=== PATIENT | male | born 1960 | race Caucasian/White ===

== ENCOUNTER → 2019-04-15 | Outpatient (CLI) | payer OTHER, BC ==
[~2019-04-15] MED LIST: ATOR20TA58 PO; FEBU40TA PO; LACT1CAP29 PO; LISI1TAB19 PO
[2019-04-15 09:24] LABS: BASO % 1 % (0-3); EOS # 0.1 x10^3/uL (0.0-0.7); EOS % 2 % (0-3); HEMATOCRIT 41.3 % (39.0-53.0); HEMOGLOBIN 14.1 g/dL (13.0-17.5); LYMPH # 1.2 x10^3/uL (1.0-4.8); LYMPH % 23 % (24-48); MEAN CORPUSCULAR HEMOGLOBIN 31 pg (25-35); MEAN CORPUSCULAR HGB CONC 34 g/dL (31-37); MEAN CORPUSCULAR VOLUME 90 fL (79-100); MONO # 0.5 x10^3/uL (0.0-1.1); MONO % 9 % (0-9); NEUT # 3.4 x10^3/uL (1.8-7.7); NEUT % 66 % (31-73); PLATELET COUNT 190 x10^3/uL (140-400); RED BLOOD COUNT 4.57 x10^6/uL (4.30-5.70); RED CELL DISTRIBUTION WIDTH 13.1 % (11.5-14.5); WHITE BLOOD COUNT 5.2 x10^3/uL (4.0-11.0)
[2019-04-15 09:33] LABS: PROTHROMBIN TIME PATIENT 12.2 SEC (11.7-14.0)
[2019-04-15 09:38] LABS: ALBUMIN 3.8 g/dL (3.4-5.0); CALCIUM 9.4 mg/dL (8.5-10.1); CREATININE 1.5 mg/dL (0.7-1.3); GFR 48.2
--- NOTE | 2019-04-15 13:20 | EKG ---
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
--- NOTE | 2019-04-15 14:42 | RAD ---
CHEST PA LATERAL History: Hypertension Comparison: None. Findings: Frontal and lateral views of the chest were obtained. The cardiomediastinal silhouette is normal. Pulmonary vasculature is normal. The lungs are clear . Right medial upper lung field opacities present probably related to vasculature. This is seen on the frontal view.. No pleural effusion or pneumothorax is seen. There is no acute bone abnormality. IMPRESSION: No acute cardiopulmonary process. Electronically signed by: José Antonio Mayer MD (04/15/2019 2:39 PM) [facility]
[2019-04-16 00:07] LABS: HEMOGLOBIN A1C 5.2 % (4.8-5.6)
== END | disposition home or self-care (01) ==
LOC: SURGPAT 13:20
PROVIDERS: ATTEND Orthopaedic Surgery
DX: Z01.818 Encounter for other preprocedural examination (principal); M17.11 Unilateral primary osteoarthritis, right knee; I10 Essential (primary) hypertension
CPT/HCPCS: 36415; 71046; 80048; 82040; 82306; 83036; 85025; 85610; 85651; 85730; 87641; 93005

== ENCOUNTER → 2019-09-19 | Outpatient (CLI) | payer OTHER, BC ==
[~2019-09-19] MED LIST changes: +ASPI325T11 PO; +LISI-334 PO; -LISI1TAB19 PO; +LISI1TAB37 PO; +TAMS0.4C97 PO; +VITA25006 PO
[2019-09-19 13:24] LABS: ALBUMIN 3.5 g/dL (3.4-5.0); C-REACTIVE PROTEIN 2.1 mg/L (0-3.3); CREATININE 1.3 mg/dL (0.7-1.3); GFR 56.9; POTASSIUM 4.1 mmol/L (3.5-5.1)
[2019-09-19 13:32] LABS: PROTHROMBIN TIME PATIENT 12.1 SEC (11.7-14.0)
[2019-09-20 01:10] LABS: HEMOGLOBIN A1C 5.2 % (4.8-5.6)
== END | disposition home or self-care (01) ==
LOC: SURGPAT 12:30
PROVIDERS: ATTEND Orthopaedic Surgery
DX: Z01.818 Encounter for other preprocedural examination (principal); Z11.59 Encounter for screening for other viral diseases; M17.11 Unilateral primary osteoarthritis, right knee; Z96.651 Presence of right artificial knee joint
CPT/HCPCS: 80048; 82040; 82306; 83036; 85610; 85730; 86140; 87641; U0003

== ENCOUNTER 2019-09-24 06:05 | Inpatient (IN) | payer OTHER, BC ==
--- NOTE | 2019-09-23 14:52 | PDOC1 ---
History and Physical Date of Admission Date of Admission 09/24/2019 Identification/Chief Complaint Chief Complaint Right knee pain, right knee osteoarthritis Source Source: Chart review History of Present Illness History of Present Illness 59-year-old man with longstanding right knee pain, and previously had meniscectomy with Dr. Nichole. He tried cortisone injections, and has attempted to lose weight. Cortisone only gave him temporary relief.. 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 While working he was having difficulty and could "hardly walk back to my car". Currently, he states that his right knee is the bad knee although his left knee is bothering him now due to increased weight bearing. He has been unable to exercises as his knee bothers him at the end of the day and makes it difficult for him to even walk to the car. As a result, he has gained weight since his last visit. Denies blood thinners, smoking, or metal/nickel allergy. He is here for elective total knee replacement surgery. Past Medical History Cardiovascular: HTN, Hyperlipidemia Past Surgical History Past Surgical History: Hernia Repair Family History Family History: No Significant Social History Smoke: No (except occasional cigar smoking) ALCOHOL: occassional Current Problem List Problem List Osteoarthritis right knee Current Medications Current Medications Active Scripts Active Reported Noxifol-D3 2,500 Unit-1 mg Tab (Vitamin D3/Folic Acid) 2,500 Unit Tablet 10,000 Unit PO DAILY Uloric (Febuxostat) 40 Mg Tablet 1 Tab PO DAILY 30 Days Atorvastatin Calcium 20 Mg Tablet 1 Tab PO DAILY Lisinopril 20 Mg Tablet 1 Tab PO DAILY Flomax (Tamsulosin Hcl) 0.4 Mg Cap.er.24h 1 Cap PO DAILY Allergies Allergies: Coded Allergies: No Known Drug Allergies (Unverified , 09/19/19) ROS Review of System CONSTITUTIONAL: Fever denies. Chills denies. Weight gain denies. Weakness none. weight loss denies. Fatigue none. OPHTHALMOLOGY: Blurred vision none. Double vision denies. Change in vision none. ENT: Hearing loss none. Change in voice denies. Rhinorrhea none. CARDIOLOGY: Palpitations none. Shortness of breath denies. Chest pain none. GASTROENTEROLOGY: Diarrhea denies. Vomiting none. Dysphagia none. UROLOGY: Voiding normally yes. Hematuria none. MUSCULOSKELETAL: Chronic back or neck pain denies. Swelling of the feet, hands, ankles and /or legs denies. Joint pain Right Knee. DERMATOLOGY: Rash denies. Lumps none. NEUROLOGY: Dizziness/lightheadedness denies. Double vision, temporary blindness denies. Tingling/numbness none. PSYCHOLOGY: Change in mood or personality denies. Memory loss none. ENDOCRINOLOGY: Obesity denies. Fatigue none. Weight loss none. HEMATOLOGY/LYMPH: Hepatitis denies. Enlarged lymph nodes denies. Physical Exam General: Alert, Cooperative HEENT: Atraumatic Lungs: Normal air movement Heart: RRR Abdomen: Soft Extremities: Other (The RIGHT knee shows an antalgic gait. There is varus alignment. No masses. There is a small effusion although not as much fluid or tenderness as at the last visit. Tenderness on the joint lines. Range of motion is 5-115 degrees. There is crepitus with range of motion, and pain at the extremes of motion. The knee is stable to varus and valgus stress without subluxation or laxity. Muscle strength is slightly weak for the quadriceps 4+/5 which may be due to pain or avoidance, and does not seem neurogenic, and the muscle tone and bulk is slightly decreased. The hamstring strength is 5/5. The skin is normal with no scars, rashes, lesions or ulcers. Light touch sensation is intact. No edema and no varicosities. Dorsalis pedis pulse is intact and capillary refill is normal. ) Neuro: Normal speech, Normal tone, Sensation intact Vitals Vitals Vital Signs Date Time Temp Pulse Resp B/P (MAP) Pulse Ox O2 Delivery O2 Flow Rate FiO2 09/19/19 13:11 98.0 77 20 94 98.0 Images Images PATIENT: BELEM REYNOSO ACCOUNT: [id number] : 1960 LOCATION: [facility] AGE: 58 SEX: M EXAM STATUS: REG CLI ORD. PHYSICIAN: LEO GARCIA MD REASON: PROCEDURE: KNEE BILAT 2V EXAM: 1. KNEE STANDING BILAT AP, 2. KNEE BILAT 2V. HISTORY: Bilateral knee pain. COMPARISON: None. FINDINGS: On the right, the medial compartmental joint space is effaced. There are moderate osteophytes along all 3 compartments. There is there is angulation and mild lateral subluxation of the tibia. A joint effusion is moderate. A small metallic foreign body projects within the anteromedial soft tissues of the distal thigh and measures approximately 5 mm. On the left, there are tiny osteophytes along the patella with preservation of joint spaces. Alignment is maintained. There is no joint effusion. No fractures are identified. IMPRESSION: 1. Severe medial compartment predominant osteoarthritis of the right knee with varus angulation. 2. Minimal patellofemoral compartmental osteoarthritis on the left. Electronically signed by: Dawn Holley MD (03/08/2019 8:41 AM) [facility] DICTATED and SIGNED BY: ELKIN HOLLEY MD DATE: 03/08/1941 VTE Prophylaxis Ordered VTE Prophylaxis Devices: Yes VTE Pharmacological Prophylaxi: Yes Assessment/Plan Assessment/Plan He has [id number] osteoarthritis of the right knee. He has tried nonoperative treatment without prolonged success. He has tried weight loss but difficult to do especially since both knees have started to hurt now. We discussed the risks benefits and alternatives of total knee arthroplasty. I recommended total knee replacement using robotic instrumentation. We discussed the potential risks of infection, neurovascular injury, bleeding, blood clots, need for revision surgery, or other potential surgical or anesthetic complications. All of his questions about surgery were answered and he is here today for elective right total knee arthroplasty with robotic assistance. Justicifation of Admission Dx: Justifications for Admission: Justification of Admission Dx: N/A LEO GARCIA MD Sep 23, 2019 14:52
[2019-09-24] VITALS (8 sets, daily range): BP systolic 106–158; BP diastolic 56–80
[~2019-09-24] VITALS: Ht 175.3 cm; Wt 146.0 kg
[~2019-09-24 06:05] MED LIST changes: +ACETAMINOPHEN 500 MG TABLET PO PRN; -ASPI325T11 PO; +CELECOXIB 100 MG CAPSULE. PO ONE; +MORPHINE SULFATE 5 MG, KETOROLAC 30MG VIAL 30 MG, ROPIVacaine 0.5% PF 60 ML, EPINEPHrin... INT ART ONE; +TRANEXAMIC ACID 1,000 MG in IV NS 50ML -- 1ST BAG INJ ONE; +ceFAZolin SODIUM 3 GM in IV D5W 100 ML IV PRN
[2019-09-24] MEDS ORDERED: TOBRAMYCIN POWDER 1.2 GM VIAL. ONE (06:48)
[2019-09-24] MEDS ORDERED: VANCOMYCIN 1 GM VIAL. ONE ×2 (06:48→06:49)
[2019-09-24] MEDS ORDERED: PROPOFOL 10 MG/ML (20ML) VIAL. IV ONE ×2 (06:52→07:46)
[2019-09-24] MEDS ORDERED: SEVOFLURANE > 120 MINUTES. IH ONE (06:52)
[2019-09-24] MEDS ORDERED: DEXAMETHASONE SOD PHOS 4 MG/ML VIAL ONE (06:52)
[2019-09-24] MEDS ORDERED: ONDANSETRON PF 4 MG/2 ML VIAL. ONE (06:52)
[2019-09-24] MEDS ORDERED: LIDOCAINE 2% PF 5 ML VIAL. ONE (06:52)
[2019-09-24] MEDS ORDERED: fentaNYL PF VIAL 100 MCG/2 ML VIAL ONE (06:54)
[2019-09-24] MEDS ORDERED: ROCURONIUM 100 MG/10 ML VIAL. ONE (06:54)
[2019-09-24] MEDS ORDERED: MIDAZOLAM HCL/PF 2 MG/2 ML VIAL. ONE (06:54)
[2019-09-24] MEDS ORDERED: fentaNYL PF VIAL 100 MCG/2 ML VIAL IV PRN ×2 (07:00)
[2019-09-24] MEDS ORDERED: LIDOCAINE 1% PF 2 ML VIAL. ID PRN (07:00)
[2019-09-24] MEDS ORDERED: ONDANSETRON PF 4 MG/2 ML VIAL. IV PRN (07:00)
[2019-09-24 07:01] LABS: BASO % 0 % (0-3); EOS # 0.2 x10^3/uL (0.0-0.7); EOS % 4 % (0-3); HEMATOCRIT 42.1 % (39.0-53.0); HEMOGLOBIN 14.3 g/dL (13.0-17.5); LYMPH # 1.5 x10^3/uL (1.0-4.8); LYMPH % 30 % (24-48); MEAN CORPUSCULAR HEMOGLOBIN 31 pg (25-35); MEAN CORPUSCULAR HGB CONC 34 g/dL (31-37); MEAN CORPUSCULAR VOLUME 92 fL (79-100); MONO # 0.5 x10^3/uL (0.0-1.1); MONO % 9 % (0-9); NEUT # 2.9 x10^3/uL (1.8-7.7); NEUT % 56 % (31-73); PLATELET COUNT 172 x10^3/uL (140-400); RED BLOOD COUNT 4.57 x10^6/uL (4.30-5.70); RED CELL DISTRIBUTION WIDTH 13.2 % (11.5-14.5); WHITE BLOOD COUNT 5.1 x10^3/uL (4.0-11.0)
[2019-09-24] MEDS: IV RINGERS,LACTATED 1000ML 1,000 ML IV SCH ×2 (07:07→10:25)
[2019-09-24] MEDS ORDERED: PHENYLEPHRINE in 0.9% NACL PF 1 MG/10 ML SYRINGE. IV ONE (07:46)
[2019-09-24] MEDS ORDERED: ePHEDrine PF IN SALINE 50 MG/10 ML SYRINGE. IV ONE (07:46)
[2019-09-24] MEDS ORDERED: TRANEXAMIC ACID 1,000 MG in IV NS 50ML -- 2ND BAG INJ ONE (08:00)
[2019-09-24] MEDS ORDERED: NEOSTIGMINE METHYLSULFATE 5 MG/5 ML SYRINGE. ONE (08:12)
[2019-09-24] MEDS ORDERED: GLYCOPYRROLATE 1 MG/5 ML VIAL. ONE (08:12)
[2019-09-24] MEDS ORDERED: HYDROmorphone 2 MG/ML VIAL ONE (08:55)
--- NOTE | 2019-09-24 09:47 | PDOC4 ---
Operative Note Operative Note Date of Procedure: September 24, 2019 Pre-Op Diagnosis: Unilateral primary osteoarthritis, right knee. M17.11 Post-Op Diagnosis: same Procedure: right total knee arthroplasty with patella resurfacing, robotic assisted, CPT 49342 Surgeon: Leo Fuentes MD Stereotyper: YURI Beard Anesthesia: General EBL: 150 mL Specimens Obtained: right knee bone and soft tissue Complications: none Drains: Hemovac plus pain catheter Tourniquet time: 82 Minutes Tourniquet Pressure: 350 mm Hg Indications for Procedure: Knee arthritis pain, affecting quality of life, unrelieved by nonoperative management Findings: Severe osteoarthritis with bone on bone contact medially with full thickness cartilage loss in the patellofemoral and lateral compartments Implants: Charles & Nephew Journey II Total Knee System, Size 6 right bicruciate stabilized Journey II BCS Oxinium femoral component, size 6 right Journey nonporous tibial baseplate, size 5-6 15 mm right Journey II BCS constrained articular insert, 35 mm oval Nelly II resurfacing patellar component Procedure in Detail: The patient was identified in the preoperative holding area, and the correct right lower extremity was marked by me. The patient was taken to the operating room where the patient was anesthetized by the Department of Anesthesia. Preoperative antibiotics were given intravenously. Tranexamic acid 1 g was given intravenously for intraoperative hemostasis. A "time-out" procedure was perform ed. The patient was positioned supine on the operative table with a tourniquet on the upper right thigh. A right hip bump and heel bump were attached to the operating table for later intraoperative positioning. The right lower limb was thoroughly scrubbed, then sterile Chloraprep solution was applied, and the limb was draped in sterile fashion. The operating team wore exhaust ventilated hoods with Smart Eye Personal Protection Toga Zippered Peel-Away protection system. An impervious stockinet and an adhesive drape were used such that the skin was entirely covered. The limb was exsanguinated with an Esmarch bandage, and the t ourniquet was inflated. A midline skin incision was made with a scalpel using the patella and tibial tubercle as landmarks. Electrocautery was used for hemostasis. My intellectual property legal assistant used rake retractors and a laparotomy sponge. A medial parapatellar arthrotomy incision was used with extension into the distal quadriceps tendon. The patella was retracted laterally and Hohmann retractors were now used by my intellectual property legal assistant. Excess synovium, the menisci, and the cruciate ligaments were resected sharply. A periarticular multimodal ropivacaine anesthetic injection was used in the suprapatellar pouch and distal quadriceps muscle. The patella was everted and exposed. The patella thickness was measured with a caliper, and then cut freehand with a saw, using caliper measurements to assess the resection. The lateral retinaculum was partially released from the lateral patella using electrocautery. Rongeurs were used to make sure there were no remaining exposed patellar osteophytes medially or laterally. The patella was sized, and then drilled for an oval three-peg patella component. The tibial tracker array for the NAVIO system was applied to the tibial crest four finger breadths below the tibial tubercle, using percutaneous incisions and bicortical pins. The femoral tracker array was applied outside of the original incision using two separate stab incisions using bicortical pins. Checkpoint verification pins were applied to the femur and tibia. Using the point probe, the medial and lateral malleoli were localized and the locations were stored. The center of the tibia was noted at the anterior cruciate ligament insertion and stored. The center of the femur was marked at the intersection of Whitesidess line with the transepicondylar axis. The hip center calculation was performed with range of motion of the hip. The femur neutral position was identified, and simulated weightbearing was performed with axial compression on the foot. Range of motion without stress was performed and the data collected. Range of motion with valgus stress, and range of motion with varus stress data collection was also performed. Rotational references include the Whitesidess line, and the trans-epicondylar axis. The femoral articular surface was now mapped in 3 dimensions using the point probe and digital data collected. The tibial condyle articular surfaces and cortical edges were mapped in 3 dimensions using the point probe including the medial and lateral tibial plateau. Implant planning was now performed on-screen with manipulation of the implant sizes, cut thicknesses and gaps, component rotation, component flexion/extension and component varus/valgus until satisfactory ligament balance, alignment and stability of the knee was expected throughout the range of motion. My intellectual property legal assistant held a Hohmann retractor, a medial Z-retractor, and an Army-Pollock retractor to protect the medial and lateral collateral ligaments, the patellar tendon, the skin and the other soft tissues. The point probe was used to confirm the location of the checkpoint verification pins. The distal femoral surface was now prepared using the Anspach sabrina with footpedal, and the NAVIO handpiece for bone removal to the previously planned distal femoral resection. The crosshairs at the pin locations were marked by using a mallet and the point probe for definitive location. A 5-in-1 Journey II cutting guide was then applied and the position was checked with the virtual amy wing from the NAVIO to ensure proper placement as the pins were applied. The posterior, anterior, and all chamfer cuts were made with the oscillating saw. Excess bone was removed with an osteotome and rongeurs. The tibial cutting guide was applied, positioned using the NAVIO virtual amy wing, and secured to the upper tibia using three pins at the previously planned location. The virtual amy wing was used to confirm the resection depth, slope and coronal alignment. The upper tibia was cut made with an oscillating saw. My intellectual property legal assistant held Hohmann retractors and a posterior cruciate ligament retractor to protect the medial and lateral collateral ligaments, the patellar tendon, the skin, the peroneal nerve and the other soft tissues. The upper tibia was sized with a trial baseplate. The posterior compartment was cleared of osteophytes and loose bodies. The periarticular anesthetic injection was used in the posterior compartment. The box cut for a posterior stabilized component was made. A preliminary reduction was performed with a trial femur, trial tibial baseplate and trial polyethylene. The NAVIO system was used to confirm range of motion, and postoperative stressed gap assessment. A medial release was required, using a 10 blade scalpel, and a Victoria elevator to elevate the medial structures from the upper medial tibia. Excessive medial tibial and femoral osteophytes were resected to improve the medial to lateral gap balance. The stability was assessed using different thicknesses of tibial articular surface to find satisfactory stability and good range of motion. The rotation of the tibial component was marked on the upper tibia. Final trial reduction was now performed verifying patella tracking and tibiofemoral stability and alignment. The bone pins and tracker arrays were removed, and the checkpoint verification pins were removed. The tibia preparation was completed with a drill, saw, and fin punch at the previously noted rotation. The final implants were verified and opened. Outer gloves were changed by the operating team. Betadine lavage was used. The bone cuts were irrigated with saline using the Brendan InterPulse device and then dried with suction and laparotomy sponges. Two packages of Charles + Nephew Rally HV bone cement were mixed in powdered form with Vancomycin 1gm and Tobramycin 1.2 gm, and then vacuum-mixed with the monomer, and placed into a cement gun. The cut surfaces of the bone were thoroughly dried with suction and with laparotomy sponges for cement interdigitation. The final components were cemented into place. The knee was kept at full extension while the cement hardened, and excess cement was removed. Tranexamic acid 1 g was redosed intravenously for additional intraoperative hemostasis. The tourniquet was released, and electrocautery was used for hemostasis. A final periarticular anesthetic injection was used for pain relief. The bone pin sites on the tibial crest were closed with #3-0 Nylon sutures. A final check of [id number] and stability was made, and the polyethylene implant final size was chosen. The polyethylene implant was secured to the tibial baseplate, and the knee was reduced a final time and range of motion and stability was confirmed. Thorough saline irrigation was used with the [place] InterPulse assistant professor of surgery. A pain catheter, and a 15 Fr Hemovac were inserted. Topical Vancomycin 1 gm was used during the closure. The arthrotomy was closed with interrupted iozmos-pz-[id number] #1 Vicryl suture. The arthrotomy incision was then run with #1 STRATAFIX Symmetric PDS Plus Knotless suture. The subcutaneous tissues were approximated initially with #2-0 Vicryl inverted interrupted sutures by my intellectual property legal assistant. Next the subcuticular layer was approximated in a running fashion with #3-0 STRATAFIX suture by my intellectual property legal assistant. The skin incision was then covered and reinforced by my intellectual property legal assistant with Acticoat, followed by a MONI single use negative pressure wound therapy dressing Soft roll and an Gadiel wrap were applied. Needle and sponge counts were correct. There were no apparent complications. The patient returned to the recovery room in stable condition. LEO FUENTES MD Sep 24, 2019 09:47
[2019-09-24] MEDS ORDERED: IV NORMAL SALINE 1000ML BAG 1,000 ML IV SCH (09:51)
[2019-09-24] MEDS ORDERED: METOCLOPRAMIDE HCL 10 MG/2 ML VIAL. IVP PRN (10:00)
[2019-09-24] MEDS ORDERED: fentaNYL PF VIAL 100 MCG/2 ML VIAL IVP PRN ×2 (10:00)
[2019-09-24] MEDS ORDERED: 0.9 % SODIUM CHLORIDE 10 ML DISP.SYRIN. IV PRN (10:00)
[2019-09-24] MEDS ORDERED: MORPHINE SULFATE 2 MG/ML VIAL. IVP PRN (10:00)
[2019-09-24] MEDS ORDERED: diphenhydrAMINE 50 MG/ML VIAL IVP PRN (10:00)
[2019-09-24] MEDS ORDERED: CALCIUM CARBONATE 500 MG TAB.CHEW PO PRN (10:00)
[2019-09-24] MEDS ORDERED: DEXTROSE 50% 25 GM / 50ML DISP.SYRIN. IV PRN (10:00)
[2019-09-24] MEDS ORDERED: PROCHLORPERAZINE 5 MG TABLET. PO PRN (10:00)
--- NOTE | 2019-09-24 10:35 | RAD ---
EXAM: Right knee, 2 views HISTORY: Right knee arthroplasty. COMPARISON: 03/07/2019. FINDINGS: There are changes of tricompartmental arthroplasty in near-anatomic alignment. No fractures are identified. Soft tissue gas and a drain are noted. A 4 mm metallic foreign body projects within the medial soft tissues of the right distal thigh. IMPRESSION: 1. Right total knee arthroplasty in expected alignment. Electronically signed by: Dawn Holley MD (09/24/2019 10:32 AM) [id number]
[2019-09-24] MEDS: MORPHINE SULFATE 2 MG/ML VIAL. IV PRN ×2 (10:46→11:18)
[2019-09-24] MEDS ORDERED: PROCHLORPERAZINE 10 MG/2 ML VIAL. ONE (11:07)
[2019-09-24] MEDS ORDERED: oxyCODONE/APAP 5/325 1 TAB TABLET PO PRN (11:15)
[2019-09-24] MEDS: PROCHLORPERAZINE 10 MG/2 ML VIAL. IV PRN ×2 (11:18→11:57)
[2019-09-24] MEDS: HYDROmorphone 2 MG/ML VIAL IV PRN ×4 (11:19→12:22)
[2019-09-24] MEDS: ONDANSETRON PF 4 MG/2 ML VIAL. IVP SCH ×2 (12:00→17:37)
--- NOTE | 2019-09-24 12:48 | NUR ---
received from pacu. he is drowsy and rating his pain "7". answers questions appropriately. he has good motion, sensation and pulses bilateral lower extremities. he is peripheral neuropathy in toes but has good sensation in foot ankle and legs dressing is dry and intact. Hemovac and iac present
[2019-09-24] MEDS ORDERED: TAMSULOSIN 0.4 MG CAP.ER.24H. PO SCH (13:00)
[2019-09-24] MEDS: LISINOPRIL 20 MG TABLET PO SCH (13:56)
[2019-09-24] MEDS: SENNOSIDES/DOCUSATE 8.6/50MG TABLET. PO SCH (13:56)
[2019-09-24] MEDS: ceFAZolin SODIUM 3 GM in IV DEXTROSE 5% 100ML 100 ML IV SCH ×2 (13:58→19:52)
--- NOTE | 2019-09-24 14:46 | PDOC ---
Provider Note Provider Note Report reviewed, images independently reviewed. Satisfactory total knee arthroplasty, without apparent complications. [facility] [address] [place] [address] IMAGING REPORT Signed PATIENT: BELEM REYNOSO ACCOUNT: [id number] : 1960 LOCATION: SURG AGE: 59 SEX: M EXAM STATUS: REG [facility] ORD. PHYSICIAN: LEO GARCIA MD REASON: POST OP PROCEDURE: KNEE RIGHT 2V EXAM: Right knee, 2 views HISTORY: Right knee arthroplasty. COMPARISON: 03/07/2019. FINDINGS: There are changes of tricompartmental arthroplasty in near-anatomic alignment. No fractures are identified. Soft tissue gas and a drain are noted. A 4 mm metallic foreign body projects within the medial soft tissues of the right distal thigh. IMPRESSION: 1. Right total knee arthroplasty in expected alignment. Electronically signed by: Dawn Holley MD (09/24/2019 10:32 AM) [id number] DICTATED and SIGNED BY: ELKIN HOLLEY MD DATE: 09/24/19 1032 Justicifation of Admission Dx: Justifications for Admission: Justification of Admission Dx: N/A LEO GARCIA MD Sep 24, 2019 14:46
[2019-09-24] MEDS: oxyCODONE/APAP 5/325 1 TAB TABLET PO PRN ×2 (16:14→20:47)
[2019-09-24] MEDS: ONDANSETRON ODT 4 MG TAB.RAPDIS. PO SCH (17:37)
--- NOTE | 2019-09-24 17:45 | NUR ---
Zofran held no nausea or vomiting noted
[2019-09-24] MEDS: KETOROLAC 30MG VIAL 30 MG, BUPIVACAINE MPF 0.25% 20 ML, EPINEPHrine 0.5 MG in TOTAL VOL... INT ART SCH (18:22)
[2019-09-24] MEDS: ASPIRIN ENTERIC COATED 325 MG TABLET.DR. PO SCH (20:46)
[2019-09-24] MEDS: TAMSULOSIN 0.4 MG CAP.ER.24H. PO SCH (20:46)
[2019-09-24] MEDS: ZOLPIDEM 5 MG TABLET. PO PRN (21:58)
[2019-09-25] MEDS: MORPHINE SULFATE 4 MG/ML VIAL. IVP PRN ×4 (01:10→20:05)
[2019-09-25] MEDS: ceFAZolin SODIUM 3 GM in IV DEXTROSE 5% 100ML 100 ML IV SCH (01:15)
[2019-09-25 03:10] VITALS: BP 118/56
[2019-09-25] MEDS: KETOROLAC 30MG VIAL 30 MG, BUPIVACAINE MPF 0.25% 20 ML, EPINEPHrine 0.5 MG in TOTAL VOL... INT ART SCH ×2 (05:43→05:57)
[2019-09-25] MEDS: ONDANSETRON PF 4 MG/2 ML VIAL. IVP SCH ×2 (06:00)
[2019-09-25] MEDS: ONDANSETRON ODT 4 MG TAB.RAPDIS. PO SCH ×3 (06:00→12:00)
[2019-09-25] MEDS ORDERED: MAGNESIUM HYDROXIDE 2,400 MG/30 ML ORAL.SUSP. PO PRN (06:00)
--- NOTE | 2019-09-25 06:00 | NUR ---
IAC not infuse catheter tubing got disconnected when pt changing his shorts earlier during the shift hemovac drain accidentally came out reenforce dressing
[2019-09-25 07:15] VITALS: BP 122/74
[2019-09-25 07:23] LABS: PROTHROMBIN TIME PATIENT 13.3 SEC (11.7-14.0)
[2019-09-25 07:40] LABS: HEMATOCRIT 36.5 % (39.0-53.0); HEMOGLOBIN 12.5 g/dL (13.0-17.5)
[2019-09-25] MEDS: FEBUXOSTAT 40 MG TABLET PO SCH (08:46)
[2019-09-25] MEDS: MULTIVITAMIN with MINERAL TABLET. PO SCH (08:46)
[2019-09-25] MEDS: ASPIRIN ENTERIC COATED 325 MG TABLET.DR. PO SCH ×2 (08:46→20:04)
[2019-09-25] MEDS: SENNOSIDES/DOCUSATE 8.6/50MG TABLET. PO SCH (08:46)
--- NOTE | 2019-09-25 08:48 | PDOC ---
ORTHO PROGRESS NOTES DATE: 09/25/19 TIME: 08:36 Subjective Patient states is painful today more so than yesterday. Post-op Day: 1 Procedure Right total knee arthroplasty with patellar resurfacing robot assisted Vitals Vital Signs Date Time Temp Pulse Resp B/P (MAP) Pulse Ox O2 Delivery O2 Flow Rate FiO2 09/25/19 07:43 Room Air 09/25/19 07:15 97.8 91 20 122/74 (90) 96 97.8 09/24/19 15:09 2.0 Labs Laboratory Tests Test 09/24/19 06:40 09/25/19 03:50 White Blood Count 5.1 x10^3/uL (4.0-11.0) Red Blood Count 4.57 x10^6/uL (4.30-5.70) Hemoglobin 14.3 g/dL (13.0-17.5) 12.5 g/dL (13.0-17.5) Hematocrit 42.1 % (39.0-53.0) 36.5 % (39.0-53.0) Mean Corpuscular Volume 92 fL (79-100) Mean Corpuscular Hemoglobin 31 pg (25-35) Mean Corpuscular Hemoglobin Concent 34 g/dL (31-37) 34 g/dL (31-37) Red Cell Distribution Width 13.2 % (11.5-14.5) Platelet Count 172 x10^3/uL (140-400) Neutrophils (%) (Auto) 56 % (31-73) Lymphocytes (%) (Auto) 30 % (24-48) Monocytes (%) (Auto) 9 % (0-9) Eosinophils (%) (Auto) 4 % (0-3) Basophils (%) (Auto) 0 % (0-3) Neutrophils # (Auto) 2.9 x10^3/uL (1.8-7.7) Lymphocytes # (Auto) 1.5 x10^3/uL (1.0-4.8) Monocytes # (Auto) 0.5 x10^3/uL (0.0-1.1) Eosinophils # (Auto) 0.2 x10^3/uL (0.0-0.7) Basophils # (Auto) 0.0 x10^3/uL (0.0-0.2) Prothrombin Time 13.3 SEC (11.7-14.0) Prothromb Time International Ratio 1.1 (0.8-1.1) Laboratory Tests Test 09/25/19 03:50 Hemoglobin 12.5 g/dL (13.0-17.5) Hematocrit 36.5 % (39.0-53.0) Mean Corpuscular Hemoglobin Concent 34 g/dL (31-37) Prothrombin Time 13.3 SEC (11.7-14.0) Prothromb Time International Ratio 1.1 (0.8-1.1) Notes Awake and alert sitting up in chair at bedside. Assessment and Plan Postop day 1 status post right total knee arthroplasty with patellar resurfacing robotic assisted Motor and sensation intact distally. Calf is soft and nontender. Dressing is dry and intact. The IAC was not functional last evening per report. Also the drain was pulled early. Patient has complaint of pain and less mobility at this time. Continue PT. Pain control MAYANK CONWAY APRN Sep 25, 2019 08:48
[2019-09-25] MEDS: LISINOPRIL 20 MG TABLET PO SCH (08:52)
--- NOTE | 2019-09-25 10:35 | NUR ---
Going to therapy but still rating pain at 8. Morphine IV given. Cont. monitor.
[2019-09-25] MEDS ORDERED: ONDANSETRON PF 4 MG/2 ML VIAL. IVP PRN (12:00)
[2019-09-25] MEDS ORDERED: ONDANSETRON ODT 4 MG TAB.RAPDIS. PO PRN (12:00)
[2019-09-25] MEDS: CELECOXIB 100 MG CAPSULE. PO SCH ×2 (13:29→20:04)
[2019-09-25] MEDS: oxyCODONE/APAP 7.5/325 1 TAB TABLET PO PRN ×2 (13:30→17:15)
[2019-09-25] MEDS ORDERED: oxyCODONE/APAP 7.5/325 1 TAB TABLET PO PRN (13:30)
--- NOTE | 2019-09-25 14:30 | NUR ---
Pt c/o knee throbbing.Got orders to increase Percocet to 7.5mg.
[2019-09-25] MEDS ORDERED: BISACODYL 10 MG SUPP.RECT. PR PRN (16:00)
--- NOTE | 2019-09-25 16:30 | NUR ---
Pt requesting pain medication not time for po pain med. Morphine IV given instead.
[2019-09-25 19:00] VITALS: BP 129/51
--- NOTE | 2019-09-25 19:24 | PDOC ---
PROGRESS NOTES Date of Service DATE: 09/25/19 TIME: 19:20 Subjective Subjective Problems overnight: lots of pain. Switched to Percocet 7.5 but still requiring Morphine IV. I discussed switching to Percocet 10325. Objective Vital Signs Vital Signs Date Time Temp Pulse Resp B/P (MAP) Pulse Ox O2 Delivery O2 Flow Rate FiO2 09/25/19 17:15 Room Air 09/25/19 08:52 93 116/72 09/25/19 07:15 97.8 20 96 97.8 09/24/19 15:09 2.0 Physical Exam Calf soft. MONI intact. Pain cath and drain have been removed. Expected warmth and swelling. No erythema, no blisters, minimal MONI drainage, some serous drainage on pillow. Unable to lift leg from bed but good AROM ankle foot and toes. Sensation and cap refill normal. Labs Laboratory Tests Test 09/24/19 06:40 09/25/19 03:50 White Blood Count 5.1 x10^3/uL (4.0-11.0) Red Blood Count 4.57 x10^6/uL (4.30-5.70) Hemoglobin 14.3 g/dL (13.0-17.5) 12.5 g/dL (13.0-17.5) Hematocrit 42.1 % (39.0-53.0) 36.5 % (39.0-53.0) Mean Corpuscular Volume 92 fL (79-100) Mean Corpuscular Hemoglobin 31 pg (25-35) Mean Corpuscular Hemoglobin Concent 34 g/dL (31-37) 34 g/dL (31-37) Red Cell Distribution Width 13.2 % (11.5-14.5) Platelet Count 172 x10^3/uL (140-400) Neutrophils (%) (Auto) 56 % (31-73) Lymphocytes (%) (Auto) 30 % (24-48) Monocytes (%) (Auto) 9 % (0-9) Eosinophils (%) (Auto) 4 % (0-3) Basophils (%) (Auto) 0 % (0-3) Neutrophils # (Auto) 2.9 x10^3/uL (1.8-7.7) Lymphocytes # (Auto) 1.5 x10^3/uL (1.0-4.8) Monocytes # (Auto) 0.5 x10^3/uL (0.0-1.1) Eosinophils # (Auto) 0.2 x10^3/uL (0.0-0.7) Basophils # (Auto) 0.0 x10^3/uL (0.0-0.2) Prothrombin Time 13.3 SEC (11.7-14.0) Prothromb Time International Ratio 1.1 (0.8-1.1) Laboratory Tests Test 09/25/19 03:50 Hemoglobin 12.5 g/dL (13.0-17.5) Hematocrit 36.5 % (39.0-53.0) Mean Corpuscular Hemoglobin Concent 34 g/dL (31-37) Prothrombin Time 13.3 SEC (11.7-14.0) Prothromb Time International Ratio 1.1 (0.8-1.1) Assessment Assessment POD# 1 after TKA. He's doing OK except for pain. Probably to be expected because of the increased surgical trauma of a large patient, large knee, medial release, large medial osteophytes removed with osteotomes intra-op. Plan Plan of Care Increase pain meds. Discharge planning. Continue PT and DVT prophylaxis. Justicifation of Admission Dx: Justifications for Admission: Justification of Admission Dx: N/A LEO GARCIA MD Sep 25, 2019 19:24
[2019-09-25] MEDS ORDERED: oxyCODONE/APAP 10/325 1 TAB TABLET PO PRN (19:30)
[2019-09-25] MEDS: ATORVASTATIN CALCIUM 20 MG TABLET PO SCH (20:04)
[2019-09-25] MEDS: TAMSULOSIN 0.4 MG CAP.ER.24H. PO SCH (20:04)
[2019-09-25] MEDS: ZOLPIDEM 5 MG TABLET. PO PRN (21:28)
[2019-09-25] MEDS: oxyCODONE/APAP 10/325 1 TAB TABLET PO PRN (21:28)
[2019-09-25 23:00] VITALS: BP 104/73
[2019-09-26] MEDS: oxyCODONE/APAP 10/325 1 TAB TABLET PO PRN ×5 (01:12→20:44)
[2019-09-26 07:15] VITALS: BP 112/72
--- NOTE | 2019-09-26 08:00 | NUR ---
awake and resting in bed. he is rating his pain a "5" at this time. medication started to kick in. he has good pulses, motion and sensation bilateral lower extremities. right leg has 2-3+ edema.
[2019-09-26] MEDS: ASPIRIN ENTERIC COATED 325 MG TABLET.DR. PO SCH ×2 (08:15→20:45)
[2019-09-26] MEDS: MULTIVITAMIN with MINERAL TABLET. PO SCH (08:15)
[2019-09-26] MEDS: FEBUXOSTAT 40 MG TABLET PO SCH (08:15)
[2019-09-26] MEDS: CELECOXIB 100 MG CAPSULE. PO SCH ×2 (08:15→20:45)
[2019-09-26] MEDS: SENNOSIDES/DOCUSATE 8.6/50MG TABLET. PO SCH (08:15)
[2019-09-26] MEDS: LISINOPRIL 20 MG TABLET PO SCH (08:16)
[2019-09-26 10:36] LABS: HEMATOCRIT 35.5 % (39.0-53.0)
[2019-09-26] MEDS: MORPHINE SULFATE 4 MG/ML VIAL. IVP PRN ×2 (11:58→22:00)
--- NOTE | 2019-09-26 13:00 | NUR ---
states that his leg is throbbing ;medicated with morphine prior to next therapy.
--- NOTE | 2019-09-26 14:07 | PATHOLOGY ---
[facility] Accession Number: [id number] . 01 Material submitted: . knee - RIGHT KNEE BONE AND TISSUE. Modifiers: right . 01 Clinical history: . RIGHT TOTAL KNEE ARTHROPLASTY, OA . 02 Diagnosis: Segments of bone and soft tissue, right total knee arthroplasty: - Advanced degenerative arthritis. (JPM:zuleika; 09/26/2019) QMS 09/26/2019 1146 Local . 02 Electronically signed: . Jesus Cho MD, Pathologist NPI- [id number] . 01 Gross description: . The specimen is received in formalin, labeled "Issac Moreno, right knee bone and tissue" and consists of multiple segments of bone including the tibial plateau with attached yellow-[place]umada soft tissue measuring 14.1 x 13.3 x 2.7 cm. The meniscus is present. The articular surfaces show focal eburnation. Process Cheese Cooker sections are submitted in A1-A2 with A2 following decalcification. (SDY; 09/25/2019) SYU/SYU 09/25/2019 1414 Local . 02 Pathologist provided ICD-10: M17.11 . 02 CPT . 907966, 134666 Specimen Comment: A courtesy copy of this report has been sent to [phone], [phone] Specimen Comment: [id number] Specimen Comment: Report sent to / DR LY Performed at: 01 [facility] [address], [place] [id number] MD Rah Johnson MD Phone: [phone] Performed at: 02 [facility] [address] [place], [place] [id number] MD Jesus Cho MD Phone: [phone]
--- NOTE | 2019-09-26 16:55 | PDOC ---
PROGRESS NOTES Date of Service DATE: 09/26/19 TIME: 16:54 Subjective Subjective Still using some MSO4 and Percocet 10 with pain at 7/10 Objective Vital Signs Vital Signs Date Time Temp Pulse Resp B/P (MAP) Pulse Ox O2 Delivery O2 Flow Rate FiO2 09/26/19 12:30 97 Room Air 09/26/19 11:15 20 09/26/19 08:16 91 104/73 09/26/19 07:15 97.6 97.6 09/24/19 15:09 2.0 Physical Exam Less WB than yesterday. Difficulty with WB. MONI with spotty drainage. Calf nontender. Labs Laboratory Tests Test 09/25/19 03:50 09/26/19 04:52 09/26/19 10:20 Hemoglobin 12.5 g/dL (13.0-17.5) 12.0 g/dL (13.0-17.5) Hematocrit 36.5 % (39.0-53.0) 35.5 % (39.0-53.0) Mean Corpuscular Hemoglobin Concent 34 g/dL (31-37) 34 g/dL (31-37) Prothrombin Time 13.3 SEC (11.7-14.0) 13.0 SEC (11.7-14.0) Prothromb Time International Ratio 1.1 (0.8-1.1) 1.0 (0.8-1.1) Laboratory Tests Test 09/26/19 04:52 09/26/19 10:20 Prothrombin Time 13.0 SEC (11.7-14.0) Prothromb Time International Ratio 1.0 (0.8-1.1) Hemoglobin 12.0 g/dL (13.0-17.5) Hematocrit 35.5 % (39.0-53.0) Mean Corpuscular Hemoglobin Concent 34 g/dL (31-37) Assessment Assessment Still requiring narcotic intravenous pain medications. Pain is at 7/10. I am to keep him until tomorrow for discharge. Plan Plan of Care Continue physical therapy, DVT prophylaxis and pain medicines. Discharge plann ing for Monday. Justicifation of Admission Dx: Justifications for Admission: Justification of Admission Dx: N/A LEO GARCIA MD Sep 26, 2019 16:55
[2019-09-26 19:00] VITALS: BP 122/73
[2019-09-26] MEDS: ATORVASTATIN CALCIUM 20 MG TABLET PO SCH (20:44)
[2019-09-26] MEDS: TAMSULOSIN 0.4 MG CAP.ER.24H. PO SCH (20:45)
[2019-09-26] MEDS: ZOLPIDEM 5 MG TABLET. PO PRN (22:00)
[2019-09-27] MEDS: oxyCODONE/APAP 10/325 1 TAB TABLET PO PRN ×5 (01:52→19:10)
[2019-09-27 07:15] VITALS: BP 115/60
[2019-09-27] MEDS: FEBUXOSTAT 40 MG TABLET PO SCH (08:19)
[2019-09-27] MEDS: SENNOSIDES/DOCUSATE 8.6/50MG TABLET. PO SCH (08:19)
[2019-09-27] MEDS: CELECOXIB 100 MG CAPSULE. PO SCH (08:19)
[2019-09-27] MEDS: LISINOPRIL 20 MG TABLET PO SCH (08:19)
[2019-09-27] MEDS: MULTIVITAMIN with MINERAL TABLET. PO SCH (08:19)
[2019-09-27] MEDS: ASPIRIN ENTERIC COATED 325 MG TABLET.DR. PO SCH (08:20)
[2019-09-27 10:04] LABS: HEMATOCRIT 33.5 % (39.0-53.0); HEMOGLOBIN 11.4 g/dL (13.0-17.5)
[2019-09-27 10:07] LABS: PROTHROMBIN TIME PATIENT 12.9 SEC (11.7-14.0)
[2019-09-27 11:15] VITALS: BP 125/64
[2019-09-27 15:15] VITALS: BP 120/60
[2019-09-27] MEDS ORDERED: MAGNESIUM CITRATE 296 ML SOLUTION. PO ONE (16:00)
--- NOTE | 2019-09-27 18:50 | PDOC ---
PROGRESS NOTES Date of Service DATE: 09/27/19 TIME: 18:47 Subjective Subjective Still moderate pain but doing better today Objective Vital Signs Vital Signs Date Time Temp Pulse Resp B/P (MAP) Pulse Ox O2 Delivery O2 Flow Rate FiO2 09/27/19 15:15 98.2 76 18 120/60 (80) 97 Room Air 98.2 09/24/19 15:09 2.0 Physical Exam MONI dressing changed. Incision benign with some bloody drainage, spotty only. Calf nontender. Terri's negative. Labs Laboratory Tests Test 09/26/19 04:52 09/26/19 10:20 09/27/19 09:40 Prothrombin Time 13.0 SEC (11.7-14.0) 12.9 SEC (11.7-14.0) Prothromb Time International Ratio 1.0 (0.8-1.1) 1.0 (0.8-1.1) Hemoglobin 12.0 g/dL (13.0-17.5) 11.4 g/dL (13.0-17.5) Hematocrit 35.5 % (39.0-53.0) 33.5 % (39.0-53.0) Mean Corpuscular Hemoglobin Concent 34 g/dL (31-37) 34 g/dL (31-37) Laboratory Tests Test 09/27/19 09:40 Hemoglobin 11.4 g/dL (13.0-17.5) Hematocrit 33.5 % (39.0-53.0) Mean Corpuscular Hemoglobin Concent 34 g/dL (31-37) Prothrombin Time 12.9 SEC (11.7-14.0) Prothromb Time International Ratio 1.0 (0.8-1.1) Assessment Assessment POD#3 after TKA Plan Plan of Senior Care today. Oral pain meds. Aspirin BID for DVT prophylaxis. Follow up with my office Monday. Home Health. Justicifation of Admission Dx: Justifications for Admission: Justification of Admission Dx: N/A LEO GARCIA MD Sep 27, 2019 18:50
--- NOTE | 2019-09-27 18:53 | PDOC3 ---
Discharge Summary Visit Information Date of Admission: Sep 24, 2019 Date of Discharge: Sep 27, 2019 Final Diagnosis osteoarthritis right knee aftercare after TKA Brief Hospital Course Allergies Allergies Coded Allergies Type Severity Reaction Last Updated Verified No Known Drug Allergies 09/24/19 No Vital Signs Vital Signs Date Time Temp Pulse Resp B/P (MAP) Pulse Ox O2 Delivery O2 Flow Rate FiO2 09/27/19 15:15 98.2 76 18 120/60 (80) 97 Room Air 98.2 Lab Results Laboratory Tests Test 09/26/19 04:52 09/26/19 10:20 09/27/19 09:40 Prothrombin Time 13.0 SEC (11.7-14.0) 12.9 SEC (11.7-14.0) Prothromb Time International Ratio 1.0 (0.8-1.1) 1.0 (0.8-1.1) Hemoglobin 12.0 g/dL (13.0-17.5) 11.4 g/dL (13.0-17.5) Hematocrit 35.5 % (39.0-53.0) 33.5 % (39.0-53.0) Mean Corpuscular Hemoglobin Concent 34 g/dL (31-37) 34 g/dL (31-37) Laboratory Tests Test 09/27/19 09:40 Hemoglobin 11.4 g/dL (13.0-17.5) Hematocrit 33.5 % (39.0-53.0) Mean Corpuscular Hemoglobin Concent 34 g/dL (31-37) Prothrombin Time 12.9 SEC (11.7-14.0) Prothromb Time International Ratio 1.0 (0.8-1.1) Brief Hospital Course 59 year old who presented with knee osteoarthritis, for elective total knee arthroplasty. The patient underwent total knee arthroplasty under general anesthesia the day of admission. Perioperative antibiotics and DVT prophylaxis were used. Postoperatively physical therapy and case management were consulted. The patient progressed and is stable for discharge. Discharge Information Condition at Discharge: Stable Follow Up: Weeks Disposition/Orders: D/C to Home w/ HH Scheduled Atorvastatin Calcium (Atorvastatin Calcium), 1 TAB PO DAILY, (Reported) Febuxostat (Uloric), 1 TAB PO DAILY, (Reported) Lisinopril (Lisinopril), 1 TAB PO DAILY, (Reported) Tamsulosin Hcl (Flomax), 1 CAP PO DAILY, (Reported) Vitamin D3/Folic Acid (Noxifol-D3 2,500 Unit-1 mg Tab), 10,000 UNIT PO DAILY, (R eported) Patient Instructions Patient Instructions Continue to weight bearing as tolerated with walker. Keep MONI dressing intact and dry. Follow up with Dr. Fuentes's office Monday. Call for appointment unless already scheduled. Continue enteric coated aspirin 325 mg by mouth twice a day for 30 days to prevent blood clots. Justicifation of Admission Dx: Justifications for Admission: Justification of Admission Dx: N/A LEO FUENTES MD Sep 27, 2019 18:53
--- NOTE | 2019-09-27 18:55 | SNU/HH DC ---
DISCHARGE WITH HOME HEALTH DISCHARGE INFORMATION: Discharge Date: Sep 27, 2019 Final Diagnosis: osteoarthritis right knee aftercare after total knee arthroplasty Condition on Discharge: Stable CODE STATUS: Code Status: Full HOME HEALTH: Face to Face: I certify this patient is under my care and that I, or a nurse practitioner or physician's assistant professor of geography working with me, had a face to face encounter that meets the physician face to face encounter requirements with this patient on 09/27/2019 Medical Complications: S/P Joint Replacement RN For Eval/Treatment: No Physical Therapy For: Evalulation/Treatment Occupational Therapy For: Evaluation/Treatment Pt Meets Homebound Status: Unsteady balance w/ amb,, Limited distance walking POST DISCHARGE ORDERS: Activity Instructions for Disc: Activity as tolerated, Walk in house Weight Bearing Status after Di: Full weight bearing, As tolerated Bathing Instructions: Shower-keep dressing dry, No Tub Bath until see DIET AFTER DISCHARGE: Regular Wound/Incision Care: Ice to area for comfort, Keep wound/cast CDI, Keep wound elevated, Do not change dressing CHECKS AFTER DISCHARGE: Comment: will be aspirin 325 mg 2 x's a day for 30 days FOLLOW-UP: Follow Up With: follow up [facility] Dr. Fuentes on friday 09/29 at 0900; if unable call [phone] TREATMENT/EQUIPMENT ORDERS: Adaptive Equipment Issued: Front wheeled walker CERTIFICATION STATEMENT: Certification Statement: Certification Statement: Based on the above finding, I certify that this patient is confined to the home and needs intermittent fci care, physical therapy and/or speech therapy, or continues to need occupational therapy.~ This patient is under my care, and I have initiated the establishment of the plan of care.~ This patient will be followed by myself or a community physician who will periodically review the plan of care. Home Meds Reported Medications Vitamin D3/Folic Acid (Noxifol-D3 2,500 Unit-1 mg Tab) 2,500 Unit Tablet, 47540 UNIT PO DAILY for VITAMINS, TAB 09/19/19 Febuxostat (ULORIC) 40 Mg Tablet, 1 TAB PO DAILY for PREDVENT GOUT for 30 Days, #30 TAB 0 Refills 09/19/19 Atorvastatin Calcium (ATORVASTATIN CALCIUM) 20 Mg Tablet, 1 TAB PO DAILY for CHOLESTEROL, #30 TAB 5 Refills 09/19/19 Lisinopril (LISINOPRIL) 20 Mg Tablet, 1 TAB PO DAILY for HTN, #30 TAB 5 Refills 09/19/19 Tamsulosin Hcl (FLOMAX) 0.4 Mg Cap.er.24h, 1 CAP PO DAILY for PROSTASTE, #30 CAP 11 Refills 09/19/19 LEO FUENTES MD Sep 27, 2019 18:54
[2019-09-27] MEDS ORDERED: ASPI325T11 PO (19:27)
--- NOTE | 2019-09-27 19:42 | NUR ---
reviewed discharge instructions with family and Jonah. reviewed medications side effects and follow up instructions with Dr. Fuentes. saline locjk removed. has own walker. home Health ordered. script [facility] verbalized understanding to restrictions to activities of daily living. new MONI dressing applied. incision looks good but is swollen. medi contracts paralegal socks applied bilaterally dismissed to home
[2019-09-28] MEDS ORDERED: MAGNESIUM CITRATE 296 ML SOLUTION. PO PRN (09:00)
== END 2019-09-27 19:51 | disposition home health service (06) | DRG 470 ==
LOC: SURG 06:05 → 4 NORTH 09:51 → OBSVTOIN 09:51
PROVIDERS: ADMIT Orthopaedic Surgery; ATTEND Orthopaedic Surgery
PROC: 8E0Y4CZ Robotic Assisted Procedure of Lower Extremity, Percutaneous Endoscopic Approach (ICD-10-PCS; 2019-09-24)
PROC: 0SRC069 Replacement of Right Knee Joint with Oxidized Zirconium on Polyethylene Synthetic Substitute, Cemented, Open Approach (ICD-10-PCS; principal; 2019-09-24 07:10)
DX: M17.11 Unilateral primary osteoarthritis, right knee (principal); E78.5 Hyperlipidemia, unspecified; F17.290 Nicotine dependence, other tobacco product, uncomplicated; I10 Essential (primary) hypertension; Z79.899 Other long term (current) drug therapy
CPT/HCPCS: 36415; 73560; 85014; 85018; 85025; 85610; 86850; 86900; 86901; 88305; 88311; 99406; A7015; C1713; J0171; J0690; J0780; J1100; J1170; J1885; J2250; J2270; J2370; J2405; J2704; J2710; J2795; J3010; J3260; J3370; J3490; J7030; J7060; J7120; 97110-GP; 97116-GP; 97150-GP; 97530-GP; 97535-GO; A4461; C1769; G0378

== ENCOUNTER → 2019-09-30 | Outpatient (CLI) | payer OTHER, BC ==
[2019-09-27 08:19] VITALS: BP 122/73
[~2019-09-30] MED LIST changes: -ACETAMINOPHEN 500 MG TABLET PO PRN; +ASPI325T11 PO; -CELECOXIB 100 MG CAPSULE. PO ONE; -MORPHINE SULFATE 5 MG, KETOROLAC 30MG VIAL 30 MG, ROPIVacaine 0.5% PF 60 ML, EPINEPHrin... INT ART ONE; -TRANEXAMIC ACID 1,000 MG in IV NS 50ML -- 1ST BAG INJ ONE; -ceFAZolin SODIUM 3 GM in IV D5W 100 ML IV PRN
--- NOTE | 2019-09-30 11:56 | RAD ---
INDICATION: Reason: RIGHT LEG EDEMA; POST OP RT KNEE REPLACED 09/24/19 / Spl. Instructions: / History: COMPARISON: None. TECHNIQUE: Grayscale, color and doppler ultrasound images were obtained of the right lower extremity venous vasculature. RIGHT: No thrombus identified in the common femoral vein, femoral vein, popliteal vein or visualized calf veins. IMPRESSION: * No thrombus identified in deep venous system of right lower extremity. Electronically signed by: Hamilton Lane MD (09/30/2019 11:54 AM) [id number]
--- NOTE | 2019-09-30 16:34 | RAD ---
Exam: 1. Bilateral standing knees. 2. Right knee lateral and sunrise views INDICATION: Postop right TKA COMPARISON: Bilateral knees of 03/07/2019 FINDINGS: AP bilateral standing knees show right total knee arthroplasty in the interval with anatomic alignment of the femur and tibia. No acute osseous abnormality. There is mild asymmetric soft tissue swelling of the right knee. No abnormal soft tissue gas or radiopaque foreign body appreciated in this projection. Calcification in the subcutaneous fat medial to the distal right femoral diaphysis remains present. [place] and lateral views of the right knee show soft tissue fullness in the right knee joint space. Soft tissue fullness is also present in the prepatellar soft tissues. Lucencies in the subcutaneous fat of the infrapatellar soft tissues could represent small oil cysts or less likely foci of gas. IMPRESSION: Postop changes in the right knee from interval total knee arthroplasty with good alignment but residual soft tissue fullness and possible right knee joint effusion. Electronically signed by: Enoch Nicholas MD (09/30/2019 4:30 PM) [id number]
== END ==
LOC: RAD 10:52
PROVIDERS: ATTEND Orthopaedic Surgery
DX: R60.0 Localized edema (principal); Z96.651 Presence of right artificial knee joint
CPT/HCPCS: 93971

== ENCOUNTER → 2020-06-30 | Outpatient (CLI) | payer BC ==
[2019-09-27 08:19] VITALS: BP 122/73
[~2020-06-30] MED LIST changes: -LISI-334 PO; +LISI20TA18 PO
[2020-06-30 20:21] LABS: BF CLARITY CLOUDY; BF SOURCE SYNOVIAL
[2020-06-30 20:32] LABS: BF MON % 75 %; BF PMN % 25 %; BF RBC COUNT 9750 /cmm (Not Established); BF WBC COUNT 17 /cmm (Not Established)
[2020-06-30 20:36] LABS: BF COLOR RED
== END ==
LOC: SPEC 18:22
PROVIDERS: ATTEND Family Medicine
DX: M25.461 Effusion, right knee (principal)
CPT/HCPCS: 36415; 87071; 87075; 87102; 87116; 89050; 89060